=== PATIENT | male | born 1945 | race American Indian/Alaskan Native ===

== ENCOUNTER 2017-04-23 10:32 | Day surgery (SDC) | payer MEDICARE ==
[~2017-04-23 10:32] MED LIST: IOPIDINE OS ONE; MYDRIACYL OS ONE; NEOFRIN OS ONE
[2017-04-23] MEDS ORDERED: IOPIDINE ONE (10:38)
[2017-04-23] MEDS ORDERED: MYDRIACYL ONE (10:39)
[2017-04-23] MEDS ORDERED: NEOFRIN ONE (10:39)
[2017-04-23] MEDS ORDERED: IOPIDINE OS ONE (11:22)
[2017-04-23] MEDS ORDERED: MYDRIACYL OS ONE (11:22)
[2017-04-23] MEDS ORDERED: NEOFRIN OS ONE (11:22)
[2017-04-23 13:27] VITALS: BP 134/88
== END 2017-04-23 10:33 | disposition home or self-care (01) ==
LOC: OR 10:32
PROVIDERS: ATTEND Specialist
DX: H26.492 Other secondary cataract, left eye (principal)